=== PATIENT | male | born 1965 | race Caucasian/White ===

== ENCOUNTER 2016-12-28 17:39 | Emergency (ER) | payer OTHER ==
[~2016-12-28] VITALS: Ht 193 cm; Wt 69.4 kg
[~2016-12-28 17:39] MED LIST: ADULT LOW DOSE81 M1 PO; ASPIRIN325 MG PO; ATARAX10 MG PO; Ascorbic Acid,Ester- PO; Combivent IH; DOXYCYCLINE HY100 MG PO; Ecotrin PO; FLEXERIL10 MG PO; IBUPROFEN600 MG PO; LO-DOSE ASPIRIN81 M1 PO; MOTRIN800 MG PO; NAPROSYN500 MG PO; PRILOSEC OTC20 M1 PO; ST. JOHN'S WOR150 MG PO; ULTRAM50 MG PO; ZITHROMAX250 MG; ZITHROMAX250 MG PO
[2016-12-28 20:51] LABS: HEMATOCRIT 43.8 % (38.0-50.0); MCH 31.1 PG (29.0-34.0); MCHC 33.6 G/DL (30.0-36.0); MCV 92.8 FL (86-99); RBC DIS.WIDTH-CV 14.1 % (11.8-14.6); RBC DIS.WIDTH-SD 48.5 % (39-53); RED BLOOD COUNT 4.72 M/uL (4.00-5.50); WHITE BLOOD COUNT 9.2 K/uL (4.1-10.2)
[2016-12-28 21:04] LABS: PROTHROMBIN TIME 9.9 (9.2-11.2); PTT 26.8 (25-32)
[2016-12-28 21:06] LABS: CHLORIDE 105 mEq/L (99-109); POTASSIUM 4.5 mEq/L (3.7-5.4); SODIUM 139 mEq/L (136-147)
[2016-12-28 21:08] LABS: GLUCOSE 94 mg/dL (70-99)
[2016-12-28 21:09] LABS: ANION GAP 11 MEQ/L (2-14)
[2016-12-28 21:12] LABS: GFR ESTIMATE (CALCULATED) > 59 mL/min/
[2016-12-28 21:13] LABS: UREA NITROGEN (BUN) 11 mg/dL (9-23)
[2016-12-28 21:57] VITALS: BP 112/56
[2016-12-28 22:01] LABS: PLATELET COUNT UNABLE TO REPORT K/uL (156-360)
== END 2016-12-28 21:59 | disposition home or self-care (01) ==
LOC: EME 17:39 → EXP 17:39
PROVIDERS: Physician Assistant
DX: M71.21 Synovial cyst of popliteal space [Baker], right knee (principal); F17.200 Nicotine dependence, unspecified, uncomplicated
CPT/HCPCS: 80048; 85027; 85610; 85730; 93971; 99281; 99283

== ENCOUNTER 2018-03-25 21:57 | Emergency (ER) | payer OTHER ==
[~2018-03-25] VITALS: Ht 193 cm; Wt 67.2 kg
[~2018-03-25 21:57] MED LIST changes: +PRILOSEC20 MG PO; +RISPERDAL1 MG PO; +SEROQUEL50 MG PO
[2018-03-25 22:59] LABS: HEMOGLOBIN 15.2 G/DL (12.5-16.6); MCH 32.3 PG (29.0-34.0); MCHC 35.3 G/DL (30.0-36.0); MCV 91.5 FL (86-99); RBC DIS.WIDTH-CV 14.2 % (11.8-14.6); RBC DIS.WIDTH-SD 47.9 % (39-53); WHITE BLOOD COUNT 8.6 K/uL (4.1-10.2)
[2018-03-25 23:04] LABS: CHLORIDE 106 mEq/L (99-109); MAGNESIUM 2.4 mg/dL (1.3-2.7); POTASSIUM 3.9 mEq/L (3.7-5.4); SODIUM 140 mEq/L (136-147)
[2018-03-25 23:05] LABS: GLUCOSE 89 mg/dL (70-99)
[2018-03-25 23:09] LABS: CREATININE 1.1 mg/dL (0.6-1.3); GFR ESTIMATE (CALCULATED) > 59 mL/min/ (58.99-99999)
[2018-03-25 23:10] LABS: UREA NITROGEN (BUN) 13 mg/dL (9-23)
[2018-03-25 23:12] LABS: CREATINE KINASE 136 IU/L (1-294)
[2018-03-25 23:15] LABS: TROP-I INTERPRETATION NEGATIVE; TROPONIN-I < 0.01 ng/mL (0.0-0.30)
[2018-03-26 01:07] LABS: APPEARANCE CLEAR ((CLEAR)); BILIRUBIN NEGATIVE; BLOOD NEGATIVE; COLOR YELLOW ((YELLOW)); GLUCOSE (STRIP) NEGATIVE; KETONES NEGATIVE; LEUKOCYTES NEGATIVE; NITRITE NEGATIVE; PROTEIN (STRIP) NEGATIVE; SPECIFIC GRAVITY 1.011 (1.000-1.030)
[2018-03-26] MEDS ORDERED: ZOFRAN ODT8 MG PO (01:37)
[2018-03-26 01:39] LABS: PLAT.SUFFICIENCY ADEQUATE; PLATELET COUNT 242 K/uL (156-360)
[2018-03-26 02:00] VITALS: BP 108/70
== END 2018-03-26 02:01 | disposition left against medical advice (07) ==
LOC: EME 21:57
PROVIDERS: Physician Assistant
DX: R53.1 Weakness (principal); R55 Syncope and collapse; F17.200 Nicotine dependence, unspecified, uncomplicated
CPT/HCPCS: 71046; 80048; 81003; 82550; 83735; 84484; 85027; 93005; 99281; 99285

== ENCOUNTER 2018-04-15 19:06 | Emergency (ER) | payer OTHER ==
[~2018-04-15] VITALS: Ht 193 cm; Wt 67.1 kg
[~2018-04-15 19:06] MED LIST changes: +ZOFRAN ODT8 MG PO
[2018-04-15 22:26] LABS: HEMATOCRIT 41.8 % (38.0-50.0); HEMOGLOBIN 14.5 G/DL (12.5-16.6); MCH 31.8 PG (29.0-34.0); MCHC 34.7 G/DL (30.0-36.0); MCV 91.7 FL (86-99); RBC DIS.WIDTH-CV 14.4 % (11.8-14.6); RBC DIS.WIDTH-SD 48.6 % (39-53); RED BLOOD COUNT 4.56 M/uL (4.00-5.50); WHITE BLOOD COUNT 8.8 K/uL (4.1-10.2)
[2018-04-15 22:39] LABS: ALBUMIN 3.7 g/dL (3.2-4.8)
[2018-04-15 22:40] LABS: CHLORIDE 104 mEq/L (99-109); POTASSIUM 3.9 mEq/L (3.7-5.4); SODIUM 138 mEq/L (136-147)
[2018-04-15 22:42] LABS: GLUCOSE 96 mg/dL (70-99); TOTAL PROTEIN 5.9 g/dL (6.4-8.3)
[2018-04-15 22:44] LABS: TOTAL BILIRUBIN 0.3 mg/dL (0.0-1.0)
[2018-04-15 22:45] LABS: ALKALINE PHOSPHATASE 83 IU/L (3-129); SERUM ETHYL ALCOHOL < 10 mg/dL
[2018-04-15 22:46] LABS: CREATININE 0.9 mg/dL (0.6-1.3); GFR ESTIMATE (CALCULATED) > 59 mL/min/ (58.99-99999)
[2018-04-15 22:47] LABS: AST (GOT) 16 IU/L (2-34); UREA NITROGEN (BUN) 9 mg/dL (9-23)
[2018-04-15 22:49] LABS: ALT (GPT) 14 IU/L (3-49); LIPASE 10 U/L (1.0-51.0); TROP-I INTERPRETATION NEGATIVE; TROPONIN-I < 0.01 ng/mL (0.0-0.30)
[2018-04-15 23:00] LABS: PLAT.SUFFICIENCY ADEQUATE; PLATELET COUNT 228 K/uL (156-360)
[2018-04-16] MEDS ORDERED: BENTYL10 MG PO (01:24)
[2018-04-16] MEDS ORDERED: NEXIUM20 MG PO (01:24)
[2018-04-16 01:34] VITALS: BP 103/56
== END 2018-04-16 01:35 | disposition home or self-care (01) ==
LOC: EME 19:06
PROVIDERS: Physician Assistant
DX: R10.13 Epigastric pain (principal); F17.200 Nicotine dependence, unspecified, uncomplicated
CPT/HCPCS: 74176; 76705; 80053; 83690; 84484; 85027; 93005; 99281; 99284; G0480